=== PATIENT | female | born 1985 | race Caucasian/White ===

== ENCOUNTER 2020-09-07 14:06 | Emergency (ER) | payer SELFPAY ==
[2020-09-07 20:54] LABS: SARS-CoV-2 PCR by NAA Not Detected (NotDetected)
== END 2020-09-07 14:56 | disposition home or self-care (01) ==
LOC: CSHERS 14:06
DX: R51.9 Headache, unspecified (principal); R05 Cough; Z20.822 Contact with and (suspected) exposure to COVID-19; E03.9 Hypothyroidism, unspecified; F41.9 Anxiety disorder, unspecified; Z79.899 Other long term (current) drug therapy
CPT/HCPCS: 87635; 99284; U0003; U0005